=== PATIENT | female | born 1950 | race American Indian/Alaskan Native ===

== ENCOUNTER 2018-01-02 14:40 | Emergency (ER) | payer MEDICARE, BC ==
[2018-01-02 14:58] VITALS: RESP 18
[2018-01-02 16:51] VITALS: O2SAT 100
--- NOTE | 2018-01-02 16:57 | C.PDOC ---
History Of Present Illness 67 y/o female with a PMHx of right breast cancer, on Tamoxifen, complains of sharp intermittent chest pain for 2 days. Patient states pain was onset after trying some new exercises including sit-ups. Pain does not worsen with exertion. No associated SOB, nausea, or diaphoresis. Patient also reports PMHx of cardiac stress test which was negative in the past. Time Seen by Provider: 01/02/18 16:26 Chief Complaint (Nursing): Chest Pain History Per: Patient History/Exam Limitations: no limitations Onset/Duration Of Symptoms: Days (x2) Current Symptoms Are (Timing): Still Present Past Medical History Reviewed: Historical Data, Nursing Documentation, Vital Signs Vital Signs: Last Vital Signs Temp 98.4 F 01/02/18 17:20 Pulse 76 01/02/18 17:20 Resp 18 01/02/18 17:20 BP 152/72 H 01/02/18 17:20 Pulse Ox 100 01/02/18 18:27 - Medical History PMH: Malignancy (breast CA), Migraine Other Surgeries: Right breast mastectomy with implant Family History: States: No Known Family Hx - Social History Hx Tobacco Use: Yes Hx Alcohol Use: No Hx Substance Use: No - Immunization History Hx Tetanus Toxoid Vaccination: Yes Hx Influenza Vaccination: No Hx Pneumococcal Vaccination: No Review Of Systems Constitutional: Negative for: Fever Cardiovascular: Positive for: Chest Pain Respiratory: Negative for: Shortness of Breath Gastrointestinal: Negative for: Nausea, Vomiting Neurological: Negative for: Dizziness Physical Exam - Physical Exam Appears: Non-toxic, No Acute Distress Skin: No Rash Head: Atraumatic, Normacephalic Eye(s): bilateral: PERRL, EOMI Oral Mucosa: Moist Neck: Supple Chest: Tenderness (Reproducible pain at the right side of distal sternum and left sternal border) Cardiovascular: Rhythm Regular, No Murmur Respiratory: No Rales, No Rhonchi, No Wheezing, Other (Clear to auscultation bilaterally) Gastrointestinal/Abdominal: Bowel Sounds (Normoactive), Soft, No Tenderness, No Distention Back: No CVA Tenderness Extremity: Normal ROM, No Calf Tenderness, No Swelling Pulses: Left Dorsalis Pedis: Normal, Right Dorsalis Pedis: Normal Neurological/Psych: Oriented x3, Normal Speech, No Other (gross focal deficit) Gait: Steady ED Course And Treatment ECG: Interpreted By Me, Viewed By Me ECG Rhythm: Sinus Rhythm Interpretation Of ECG: RBB, Left anterior Fascicular Block Rate From EC (BPM) O2 Sat by Pulse Oximetry: 100 (RA) Pulse Ox Interpretation: Normal Medical Decision Making Medical Decision Making: EKG and labs ordered and reviewed. Patient is a difficult stick, only 1 arm available due to previous lymph node dissection on the right side. IV was obtained, with delay in obtaining blood work. Pt is deciding not to stay for full evaluation, understands potential consequences of leaving ama. States she has an appointment with her primary on Friday and will address concerns with her PMD, Fredy Ruth. Spoke with Dr. Thompson from [facility], covering for WAFER POLISHER Faraz) who confirms that patient has appointment on Friday, and will adress pt's c/o chest pain at this visit. Disposition - Disposition Disposition: AGAINST MEDICAL ADVICE Disposition Time: 17:25 Condition: STABLE Forms: [facility] (Congolese), General Discharge Instructions - Clinical Impression Clinical Impression: Chest pain, Left against medical advice - PA / WAFER POLISHER / Resident Statement MD/DO has reviewed & agrees with the documentation as recorded. - Scribe Statement The provider has reviewed the documentation as recorded by the Scribe (Yesi Gan) All medical record entries made by the Scribe were at my direction and personally dictated by me. I have reviewed the chart and agree that the record accurately reflects my personal performance of the history, physical exam, medical decision making, and the department course for this patient. I have also personally directed, reviewed, and agree with the discharge instructions and disposition.
[2018-01-02 17:24] VITALS: BP 152/72; PULSE 76; TEMP 98.4
--- NOTE | 2018-01-06 22:56 | CARD ---
APPROVED REPORT EKG Measurement Heart [id number] <Conclusion> Normal sinus rhythm Right bundle branch block Left anterior fascicular block Bifascicular block Abnormal ECG
== END 2018-01-02 17:25 | disposition left against medical advice (07) ==
LOC: C.ER 14:40
DX: R07.9 Chest pain, unspecified (principal)

== ENCOUNTER 2018-02-20 16:15 | Emergency (ER) | payer MEDICARE, OTHER ==
--- NOTE | 2018-02-20 17:19 | RAD ---
PROCEDURE: Left Knee Radiographs. HISTORY: Pain. COMPARISON: None. FINDINGS: BONES: No acute fracture. JOINTS: Unremarkable. JOINT EFFUSION: None. OTHER FINDINGS: Quadriceps tendon enthesophyte. IMPRESSION: No demonstrated fracture or dislocation.
--- NOTE | 2018-02-20 17:31 | C.PDOC ---
History Of Present Illness 67-year-old female, presents to the emergency department with complaints of non- traumatic pain to her left knee. Patient states she walks a lot, and has been experiencing this pain gradually over the past few days. Pain worsened this morning, prompting visit. She denies any numbness/weakness, nausea/vomiting, or any other associated symptoms. No other complaints at this time. Time Seen by Provider: 02/20/18 16:32 Chief Complaint (Nursing): Lower Extremity Problem/Injury History Per: Patient History/Exam Limitations: no limitations Current Symptoms Are (Timing): Still Present Severity: Moderate Past Medical History Reviewed: Historical Data, Nursing Documentation, Vital Signs Vital Signs: Last Vital Signs Temp 98.5 F 02/20/18 17:44 Pulse 80 02/20/18 17:44 Resp 18 02/20/18 17:44 BP 135/85 02/20/18 17:44 Pulse Ox 99 02/20/18 17:44 - Medical History PMH: Malignancy (breast CA), Migraine Family History: States: No Known Family Hx - Social History Hx Tobacco Use: Yes Hx Alcohol Use: No Hx Substance Use: No - Immunization History Hx Tetanus Toxoid Vaccination: Yes Hx Influenza Vaccination: No Hx Pneumococcal Vaccination: No Review Of Systems Constitutional: Negative for: Fever, Chills Respiratory: Negative for: Shortness of Breath Gastrointestinal: Negative for: Vomiting Musculoskeletal: Positive for: Other (knee pain) Neurological: Negative for: Weakness, Numbness Physical Exam - Physical Exam Appears: Non-toxic, No Acute Distress Skin: Normal Color, Warm, Dry, No Rash Head: Atraumatic, Normacephalic Eye(s): bilateral: Normal Inspection Nose: Normal Oral Mucosa: Moist Lips: Normal Appearing Neck: Normal ROM Chest: Symmetrical Extremity: Other (tenderness to lateral aspect of left knee) Neurological/Psych: Oriented x3, Normal Speech ED Course And Treatment O2 Sat by Pulse Oximetry: 97 Disposition Counseled Patient/Family Regarding: Studies Performed, Diagnosis, Need For Followup, Rx Given - Disposition Disposition: HOME/ ROUTINE Disposition Time: 17:29 Condition: STABLE Additional Instructions: Follow up with your doctor for Ortho referral. Take Motrin and Tramadol 3 times a day for 3 days. Prescriptions: Ibuprofen [Motrin] 600 mg PO TID #15 tab traMADol/Acetaminophen [Ultracet 37.5/325 mg] 1 tab PO TID PRN #15 tab PRN Reason: pain Instructions: Tendinopathy Forms: [facility] (Tamazight), General Discharge Instructions - Clinical Impression Clinical Impression: Tendinitis - Scribe Statement The provider has reviewed the documentation as recorded by the Scribe (Alejandra Morrison) All medical record entries made by the Scribe were at my direction and personally dictated by me. I have reviewed the chart and agree that the record accurately reflects my personal performance of the history, physical exam, medical decision making, and the department course for this patient. I have also personally directed, reviewed, and agree with the discharge instructions and disposition. Provider Attestation: All medical record entries made by the Scribe were at my direction and personally dictated by me. I have reviewed the chart and agree that the record accurately reflects my personal performance of the history, physical exam, medical decision making, and the department course for this patient. I have also personally directed, reviewed, and agree with the discharge instructions and disposition.
[2018-02-20 17:45] VITALS: BP 135/85; PULSE 80; RESP 18; TEMP 98.5
[2018-02-20 18:00] VITALS: O2SAT 97
== END 2018-02-20 17:45 | disposition home or self-care (01) ==
LOC: C.ER 16:15
DX: M76.892 Other specified enthesopathies of left lower limb, excluding foot (principal)

== ENCOUNTER 2018-08-15 07:59 | Emergency (ER) | payer MEDICARE, OTHER ==
[2018-08-15 08:04] VITALS: BMI 29.5
[2018-08-15 08:08] VITALS: RESP 20; TEMP 98.5; O2SAT 97
--- NOTE | 2018-08-15 08:22 | C.PDOC ---
History Of Present Illness 67 year old female with a history of breast cancer reports pain and swelling to the left armpit area for the last 3-4 days. Patient states that she has been unable to raise her arm due to pain. She denies fever, or a past medical history of diabetes. Patient has a past history of hidradenitis suppurativa, and complains of abscess, pain, and swelling to the left axilla. Patient reports having I&D procedure done in the past, and is currently managing the pain with hot compress and antibiotics. Time Seen by Provider: 08/15/18 08:13 Chief Complaint (Nursing): Abnormal Skin Integrity History Per: Patient History/Exam Limitations: no limitations Onset/Duration Of Symptoms: Days (3-4) Current Symptoms Are (Timing): Still Present Past Medical History Reviewed: Historical Data, Nursing Documentation, Vital Signs Vital Signs: Last Vital Signs Temp 98.5 F 08/15/18 08:06 Pulse 103 H 08/15/18 08:06 Resp 20 08/15/18 08:06 BP 120/80 08/15/18 08:06 Pulse Ox 97 08/15/18 08:06 - Medical History PMH: Malignancy (breast CA), Migraine Denies: Diabetes Surgical History: No Surg Hx Family History: States: No Known Family Hx - Social History Hx Tobacco Use: Yes Hx Alcohol Use: No Hx Substance Use: No - Immunization History Hx Tetanus Toxoid Vaccination: Yes Hx Influenza Vaccination: No Hx Pneumococcal Vaccination: No Review Of Systems Except As Marked, All Systems Reviewed And Found Negative. Constitutional: Negative for: Fever, Chills Respiratory: Negative for: Shortness of Breath Physical Exam - Physical Exam Appears: Non-toxic, In Acute Distress Skin: Warm, Dry, Other (scar tissue to the left axilla, small area of clif ration. No fluctuance.) Head: Atraumatic, Normacephalic Eye(s): bilateral: Normal Inspection, PERRL, EOMI Neck: Normal, Supple Chest: Symmetrical, No Tenderness Respiratory: No Accessory Muscle Use Extremity: No Normal ROM (ROM limited at left arm due to pain) Neurological/Psych: Oriented x3, Normal Speech, Normal Cognition ED Course And Treatment O2 Sat by Pulse Oximetry: 97 (RA) Pulse Ox Interpretation: Normal Medical Decision Making Medical Decision Making: Upon explanation of treatment to the patient, patient was requesting general anesthesia. When told that general anesthesia cannot be provided in the ED, but she would instead receive a referral to surgery. Upon hearing this, patient left the ED before signing discharge papers. Disposition - Disposition Disposition: HOME/ ROUTINE Disposition Time: 08:21 Condition: STABLE Instructions: Hidradenitis Suppurativa Forms: [facility] (Czech), General Discharge Instructions - POA Present On Arrival: None - Clinical Impression Clinical Impression: Axillary hidradenitis suppurativa
[2018-08-15 08:36] VITALS: BP 124/78; PULSE 88
== END 2018-08-15 08:43 | disposition home or self-care (01) ==
LOC: C.ER 07:59
DX: L73.2 Hidradenitis suppurativa (principal)

== ENCOUNTER 2018-09-23 15:06 | Emergency (ER) | payer MEDICARE, OTHER ==
[2018-09-23 15:07] VITALS: BMI 29.5
[2018-09-23 15:13] VITALS: BP 148/83; PULSE 103; RESP 18; TEMP 98; O2SAT 95
--- NOTE | 2018-09-23 17:38 | C.PDOC ---
History Of Present Illness 67 y/o female presents to the ER complaining of cough and chest pain which has been present for the past 2 days. Patient states that she has intermittent mid sternal chest pain. Denies having fever, chills, SOB, nausea, vomiting, and leg swelling. Of note, patient has history of breast cancer with right sided mastectomy. Time Seen by Provider: 09/23/18 17:21 Chief Complaint (Nursing): Chest Pain History Per: Patient History/Exam Limitations: no limitations Onset/Duration Of Symptoms: Days Current Symptoms Are (Timing): Still Present Severity: Moderate Quality: Dull Past Medical History Reviewed: Historical Data, Nursing Documentation, Vital Signs Vital Signs: Last Vital Signs Temp 98 F 09/23/18 15:09 Pulse 103 H 09/23/18 15:09 Resp 18 09/23/18 15:09 BP 148/83 09/23/18 15:09 Pulse Ox 95 09/23/18 15:09 - Medical History PMH: Malignancy (breast CA), Migraine Other Surgeries: Hx of surgeries Family History: States: No Known Family Hx - Social History Hx Tobacco Use: Yes Hx Alcohol Use: No Hx Substance Use: No - Immunization History Hx Tetanus Toxoid Vaccination: Yes Hx Influenza Vaccination: No Hx Pneumococcal Vaccination: No Review Of Systems Except As Marked, All Systems Reviewed And Found Negative. Cardiovascular: Positive for: Chest Pain. Negative for: Palpitations Respiratory: Positive for: Cough. Negative for: Shortness of Breath Gastrointestinal: Negative for: Nausea, Vomiting Physical Exam - Physical Exam Appears: Non-toxic, No Acute Distress Skin: Normal Color, Warm, Dry Head: Atraumatic, Normacephalic Eye(s): bilateral: Normal Inspection Nose: Normal Oral Mucosa: Moist Neck: Supple Chest: Symmetrical, Tenderness (reproducible anterior chest wall tenderness) Cardiovascular: Rhythm Regular Respiratory: Normal Breath Sounds Gastrointestinal/Abdominal: Normal Exam Neurological/Psych: Oriented x3, Normal Speech ED Course And Treatment ECG: Interpreted By Me ECG Rhythm: Sinus Rhythm, R BBB ECG Interpretation: No Acute Changes Rate From EC O2 Sat by Pulse Oximetry: 95 (RA) Pulse Ox Interpretation: Normal Progress Note: Patient evaluated and labs ordered. Patient eloped from ED before labs or X-Ray Reassessment Condition: Unchanged Medical Decision Making Medical Decision Making: Plan: --Labs --EKG --CXR --UA --Toradol IV Updates: The patient declines to have further medical evaluation and treatment and eloped from the Emergency Department. Disposition - Disposition Disposition: ELOPEMENT - ER ONLY Disposition Time: 17:50 Condition: STABLE Forms: [facility] (Iraqi) - POA Present On Arrival: None - Clinical Impression Clinical Impression: Chest pain - PA / MARKETING SERVICES COORDINATOR / Resident Statement MD/DO has reviewed & agrees with the documentation as recorded. - Scribe Statement The provider has reviewed the documentation as recorded by the Elmeribe Stewart Nicolas Provider Attestation All medical record entries made by the Sydni were at my direction and personally dictated by me. I have reviewed the chart and agree that the record accurately reflects my personal performance of the history, physical exam, medical decision making, and the department course for this patient. I have also personally directed, reviewed, and agree with the discharge instructions and disposition.
== END 2018-09-23 17:40 | disposition left against medical advice (07) ==
LOC: C.ER 15:06
DX: R07.9 Chest pain, unspecified (principal); Z72.0 Tobacco use; Z85.3 Personal history of malignant neoplasm of breast

== ENCOUNTER 2018-10-13 11:13 | Outpatient (CLI) | payer MEDICARE, OTHER | END 2018-10-13 11:14 | disposition home or self-care (01) | LOC: C.PAT 11:13 | DX: L72.3 Sebaceous cyst (principal) ==

== ENCOUNTER 2018-10-16 05:51 | Day surgery (SDC) | payer MEDICARE, OTHER ==
[2018-10-13 11:22] VITALS: BMI 29.0
[2018-10-16] MEDS ORDERED: Midazolam 2 MG/2 ML VIAL ONE ×2 (07:49→09:32)
[2018-10-16] MEDS ORDERED: Propofol 10 mg/ml Inj (20 ML) ONE (07:49)
[2018-10-16] MEDS ORDERED: Bupivacaine 0.25% 20 ML INJ IJ ONE (07:51)
[2018-10-16] MEDS ORDERED: Lidocaine/Epinephrine 1% 1:100000 10 ML IJ ONE (07:51)
[2018-10-16] MEDS ORDERED: ceFAZolin 1 gm in NS 2 GM/200 ML BAG IVPB ONE (09:00)
--- NOTE | 2018-10-16 09:54 | PCM.SURG1 ---
Surgeon's Initial Post Op Note - Surgeon's Notes Surgeon: Dr. Mendoza [employer] Technician: Dr. Concepcion PGY3 Type of Anesthesia: IV Sedation Pre-Operative Diagnosis: sebaceous cyst L thigh Operative Findings: see dictation Post-Operative Diagnosis: same Operation Performed: excision of left thigh sebaceous cyst Specimen/Specimens Removed: sebaceous cyst Estimated Blood Loss: EBL {In ML}: 5 Blood Products Given: N/A Drains Used: No Drains Post-Op Condition: Good Date of Surgery/Procedure: 10/16/18 Time of Surgery/Procedure: 09:54
[2018-10-16] MEDS ORDERED: HYDROmorphone 0.5 mg/0.5 ml ISec IVP PRN (09:56)
--- NOTE | 2018-10-16 11:05 | RAD ---
HISTORY: chest pain COMPARISON: Chest x-ray performed 10/13/18 TECHNIQUE: Chest, one view. FINDINGS: LUNGS: No focal consolidation. Please note that chest x-ray has limited sensitivity for the detection of pulmonary masses. PLEURA: No significant pleural effusion identified. No definite pneumothorax . CARDIOVASCULAR: Heart size appears within normal limits. No significant atherosclerotic calcification present. OSSEOUS STRUCTURES: No acute osseous abnormality identified. VISUALIZED UPPER ABDOMEN: Unremarkable. OTHER FINDINGS: None. IMPRESSION: No focal consolidation.
[2018-10-16 11:21] VITALS: BP 120/71; PULSE 72; RESP 18; TEMP 987; O2SAT 98
--- NOTE | 2018-10-16 15:11 | OP ---
PROCEDURE DATE: 10/16/2018 PREOPERATIVE DIAGNOSIS: Left thigh lesion approximately 3 x 2 cm size. POSTOPERATIVE DIAGNOSIS: Left thigh lesion approximately 3 x 2 cm size. PROCEDURES DONE: 1. Excision of left thigh lesion, 3 x 2 cm size. 2. Excision of the redundant skin surrounding the lesion to prevent re-infection, approximately 5 x 3 cm size. 3. Layered closure of the wound, 5 x 3 x 2 cm size, simple. ANESTHESIA: Local anesthesia plus sedation. ESTIMATED BLOOD LOSS: Around 10 mL. DRAIN: None. PATHOLOGY: The lesion with surrounding redundant infected skin was sent for pathology. COMPLICATIONS: None. DESCRIPTION OF PROCEDURE: On intraoperative steps, this 68-year-old female was diagnosed with left thigh lesion and patient was consented for excision of the left thigh lesion. The patient was brought to the OR, placed supine on operating table. After induction of anesthesia, the left thigh was prepped and draped in the usual fashion. The elliptical vertical incision was made to include a 3 x 2 lesion as well another small lesion on the top with surrounding irregular infected skin and the incision was deepened down to subcutaneous tissue. The dissection was carried down up to the deep subcu and the lesion was completely excised. Now, the hemostasis was achieved and irrigation of the wound was done. Again, hemostasis was achieved and wound was closed in multiple layers. The deep subcu with 2-0 Vicryl, superficial subcu with 2-0 Vicryl and skin with 4-0 Monocryl and dry sterile dressing was applied. The patient was reversed from sedation and sent to the postanesthesia care unit in stable condition. Varghese Mendoza MD
== END 2018-10-16 11:53 | disposition home or self-care (01) ==
LOC: C.SDS 05:51
PROVIDERS: ATTEND Surgery Surgical Critical Care
DX: L72.0 Epidermal cyst (principal); L73.2 Hidradenitis suppurativa
CPT/HCPCS: 11402; 71045; 88304; 93005; J0690; J2250; J2704; J3010